=== PATIENT | male | born 1940 ===

== ENCOUNTER 2020-05-11 18:38 | Emergency (ER) | payer OTHER ==
[~2020-05-11] VITALS: Ht 180.3 cm; Wt 91.6 kg
[~2020-05-11 18:38] MED LIST: Aldactone 25 MG TABLET PO; Asa-EC 81MG TAB PO; GLUCOTROL5 MG/BOTTL PO; Imdur 30MG PO; Lipitor 20MG PO; PLAVIX 75MG PO; Toprol Xl 25MG TAB PO; VASOTEC 2.5MG TAB PO
[2020-05-11] MEDS ORDERED: METFORMIN HCL500 M4 PO (18:51)
[2020-05-11] MEDS ORDERED: LEVO-T25 MCG (18:51)
[2020-05-11] MEDS ORDERED: TOPROL XL200 MG PO (18:51)
[2020-05-11] MEDS ORDERED: WARFARIN SODIUM5 MG PO (18:51)
[2020-05-11] MEDS ORDERED: IRBESARTAN150 MG PO (18:51)
[2020-05-12] MEDS ORDERED: DOLOGEN CAPLET1 EACH PO (13:57)
== END 2020-05-12 14:11 | disposition home or self-care (01) ==
LOC: ER 18:38
DX: R53.81 Other malaise (principal); R51 Headache; M47.892 Other spondylosis, cervical region; M50.323 Other cervical disc degeneration at C6-C7 level; T45.514A Poisoning by anticoagulants, undetermined, initial encounter; Y92.89 Other specified places as the place of occurrence of the external cause

== ENCOUNTER 2021-05-14 11:43 | Outpatient (CLI) | payer OTHER ==
[~2021-05-14 11:43] MED LIST changes: +DOLOGEN CAPLET1 EACH PO; +IRBESARTAN150 MG PO; +LEVO-T25 MCG; +METFORMIN HCL500 M4 PO; +TOPROL XL200 MG PO; +WARFARIN SODIUM5 MG PO
== END 2021-05-14 11:50 | disposition home or self-care (01) ==
LOC: RAD 11:43
PROVIDERS: ATTEND Internal Medicine
DX: J44.1 Chronic obstructive pulmonary disease with (acute) exacerbation (principal)

== ENCOUNTER 2022-01-10 17:25 | Inpatient (IN) | payer OTHER ==
[~2022-01-10] VITALS: Ht 177.8 cm; Wt 100.7 kg
[2022-01-10] MEDS ORDERED: PEPCID AC20 MG PO (18:02)
[2022-01-10] MEDS ORDERED: SYNTHROID75 MCG PO (18:02)
[2022-01-10] MEDS ORDERED: SIMVASTATIN5 MG PO (18:02)
[2022-01-10] MEDS ORDERED: ELIQUIS5 MG PO (18:02)
[2022-01-10] MEDS ORDERED: TAMS0.4C PO (18:03)
[2022-01-31] MEDS ORDERED: TAMS0.4C PO (10:34)
[2022-01-31] MEDS ORDERED: ELIQUIS5 MG PO (10:35)
[2022-01-31] MEDS ORDERED: AMIODARONE HCL200 MG PO (10:35)
[2022-01-31] MEDS ORDERED: CARDIZEM CD120 MG PO (10:37)
[2022-01-31] MEDS ORDERED: PANTOPRAZOLE SO40 MG PO (10:38)
[2022-01-31] MEDS ORDERED: LEVOTHYROXINE75 MCG PO (10:39)
[2022-01-31] MEDS ORDERED: ZOCOR20 MG PO (10:42)
[2022-01-31] MEDS ORDERED: Neurin-Sl Tablet Sl SL (10:45)
[2022-01-31] MEDS ORDERED: B Complex CAPSULE PO (10:45)
== END 2022-01-31 13:33 | disposition home or self-care (01) | DRG 208 ==
LOC: ER 17:25 → ICU 01-11 11:49 → MEDJ 01-20 17:47
PROVIDERS: ADMIT Internal Medicine; ATTEND Internal Medicine
PROC: 5A1945Z Respiratory Ventilation, 24-96 Consecutive Hours (ICD-10-PCS; principal; 2022-01-11)
PROC: 0BH17EZ Insertion of Endotracheal Airway into Trachea, Via Natural or Artificial Opening (ICD-10-PCS; 2022-01-11)
PROC: B24BZZZ Ultrasonography of Heart with Aorta (ICD-10-PCS; 2022-01-11)
PROC: BW28ZZZ Computerized Tomography (CT Scan) of Head (ICD-10-PCS; 2022-01-11)
PROC: 02HV33Z Insertion of Infusion Device into Superior Vena Cava, Percutaneous Approach (ICD-10-PCS; 2022-01-17)
PROC: BW24ZZZ Computerized Tomography (CT Scan) of Chest and Abdomen (ICD-10-PCS; 2022-01-22)
DX: J96.02 Acute respiratory failure with hypercapnia (principal); I16.9 Hypertensive crisis, unspecified; J90 Pleural effusion, not elsewhere classified; J44.9 Chronic obstructive pulmonary disease, unspecified; H10.89 Other conjunctivitis; I48.0 Paroxysmal atrial fibrillation; D69.6 Thrombocytopenia, unspecified; Z79.4 Long term (current) use of insulin; I11.0 Hypertensive heart disease with heart failure; I50.9 Heart failure, unspecified; D63.1 Anemia in chronic kidney disease; I25.10 Atherosclerotic heart disease of native coronary artery without angina pectoris; Z95.1 Presence of aortocoronary bypass graft; E78.49 Other hyperlipidemia; Z20.822 Contact with and (suspected) exposure to COVID-19; I12.9 Hypertensive chronic kidney disease with stage 1 through stage 4 chronic kidney disease, or unspecified chronic kidney disease; E11.22 Type 2 diabetes mellitus with diabetic chronic kidney disease; N18.9 Chronic kidney disease, unspecified

== ENCOUNTER 2022-07-12 15:26 | Emergency (ER) | payer OTHER ==
[~2022-07-12] VITALS: Ht 177.8 cm; Wt 89.4 kg
[~2022-07-12 15:26] MED LIST changes: +AMIODARONE HCL200 MG PO; +B Complex CAPSULE PO; +CARDIZEM CD120 MG PO; +ELIQUIS5 MG PO; +LEVOTHYROXINE75 MCG PO; +Neurin-Sl Tablet Sl SL; +PANTOPRAZOLE SO40 MG PO; +PEPCID AC20 MG PO; +SIMVASTATIN5 MG PO; +SYNTHROID75 MCG PO; +TAMS0.4C PO; +ZOCOR20 MG PO
[2022-07-12] MEDS ORDERED: ZITHROMAX200 MG PO (20:09)
== END 2022-07-12 20:44 | disposition home or self-care (01) ==
LOC: ER 15:26
DX: R06.02 Shortness of breath (principal); U07.1 COVID-19; E11.9 Type 2 diabetes mellitus without complications; Z79.84 Long term (current) use of oral hypoglycemic drugs; I10 Essential (primary) hypertension; E03.9 Hypothyroidism, unspecified

== ENCOUNTER 2022-07-15 15:30 | Outpatient (CLI) | payer OTHER ==
[~2022-07-15 15:30] MED LIST changes: +ZITHROMAX200 MG PO
== END 2022-07-15 16:30 | disposition home or self-care (01) ==
LOC: ASH CLINIC 15:30
PROVIDERS: ATTEND General Practice
DX: U07.1 COVID-19 (principal)

== ENCOUNTER 2023-02-19 14:19 | Inpatient (IN) | payer OTHER ==
[~2023-02-19] VITALS: Ht 180.3 cm; Wt 86.6 kg
[2023-02-27] MEDS ORDERED: TAMS0.4C PO (14:22)
[2023-02-27] MEDS ORDERED: IPRATROPIU0.2 MG/1 M IH (14:22)
[2023-02-27] MEDS ORDERED: ELIQUIS5 MG PO (14:23)
[2023-02-27] MEDS ORDERED: DILTIAZEM HCL120 MG PO (14:23)
[2023-02-27] MEDS ORDERED: INTEGRA F CAPS1 EACH PO (14:23)
[2023-02-27] MEDS ORDERED: LIPITOR20 MG PO (14:24)
[2023-02-27] MEDS ORDERED: AMIODARONE HCL200 MG PO (14:24)
[2023-02-27] MEDS ORDERED: AVAPRO150 MG PO (14:25)
[2023-02-27] MEDS ORDERED: LEVOTHYROXINE75 MCG PO (14:25)
[2023-02-27] MEDS ORDERED: LASIX20 MG PO (14:25)
[2023-02-27] MEDS ORDERED: GLUMETZA500 MG PO (14:27)
[2023-02-27] MEDS ORDERED: GLIPIZIDE XL10 MG PO (14:27)
[2023-02-27] MEDS ORDERED: KLOR-CON M1515 MEQ PO (14:30)
[2023-02-27] MEDS ORDERED: PROTONIX20 MG PO (14:31)
[2023-02-27] MEDS ORDERED: MELATONIN5 M6 PO (14:36)
== END 2023-02-27 22:48 | disposition home or self-care (01) | DRG 291 ==
LOC: ER 14:19 → ICU-2 19:31 → ICU 02-20 21:21 → MEDJ 02-22 18:33
PROVIDERS: ADMIT Internal Medicine; ATTEND Internal Medicine
PROC: 4A12X4Z Monitoring of Cardiac Electrical Activity, External Approach (ICD-10-PCS; principal; 2023-02-19)
PROC: B246ZZZ Ultrasonography of Right and Left Heart (ICD-10-PCS; 2023-02-19)
PROC: BW21ZZZ Computerized Tomography (CT Scan) of Abdomen and Pelvis (ICD-10-PCS; 2023-02-19)
PROC: 5A09457 Assistance with Respiratory Ventilation, 24-96 Consecutive Hours, Continuous Positive Airway Pressure (ICD-10-PCS; 2023-02-19)
PROC: 3E0F7GC Introduction of Other Therapeutic Substance into Respiratory Tract, Via Natural or Artificial Opening (ICD-10-PCS; 2023-02-20)
PROC: 0W993ZZ Drainage of Right Pleural Cavity, Percutaneous Approach (ICD-10-PCS; 2023-02-26)
DX: I11.0 Hypertensive heart disease with heart failure (principal); I50.43 Acute on chronic combined systolic (congestive) and diastolic (congestive) heart failure; J96.02 Acute respiratory failure with hypercapnia; J96.01 Acute respiratory failure with hypoxia; J91.8 Pleural effusion in other conditions classified elsewhere; R18.8 Other ascites; I25.810 Atherosclerosis of coronary artery bypass graft(s) without angina pectoris; Z99.11 Dependence on respirator [ventilator] status; J44.1 Chronic obstructive pulmonary disease with (acute) exacerbation; E87.1 Hypo-osmolality and hyponatremia; E87.6 Hypokalemia; I48.0 Paroxysmal atrial fibrillation; K70.9 Alcoholic liver disease, unspecified; F10.21 Alcohol dependence, in remission; E11.65 Type 2 diabetes mellitus with hyperglycemia; E03.9 Hypothyroidism, unspecified; Z79.84 Long term (current) use of oral hypoglycemic drugs; Z79.4 Long term (current) use of insulin; Z87.891 Personal history of nicotine dependence

== ENCOUNTER 2023-03-12 04:59 | Inpatient (IN) | payer OTHER ==
[~2023-03-12] VITALS: Ht 180.3 cm; Wt 89.4 kg
[~2023-03-12 04:59] MED LIST changes: +AVAPRO150 MG PO; +DILTIAZEM HCL120 MG PO; +GLIPIZIDE XL10 MG PO; +GLUMETZA500 MG PO; +INTEGRA F CAPS1 EACH PO; +IPRATROPIU0.2 MG/1 M IH; +KLOR-CON M1515 MEQ PO; +LASIX20 MG PO; +LIPITOR20 MG PO; +MELATONIN5 M6 PO; +PROTONIX20 MG PO
--- NOTE | 2023-03-12 05:11 | NUR ---
SE RECIBE PTE ALERTA Y ORIENTADO X3 JUNTO ESPOSA LA MISMA REFIERE QUE PTE FREEMAN ESTADO RECIENTEMENTE HOSPITALIZADO POR FALTA DE AIRE, LE COMENTARON QUE PTE COMENZABA A PADECER DE COPD, CON PULMONES LLENOS DE AGUA. HOY SIGUE CON SATURACION EN 90%. LA ESPOSA REFEIRE QUE EL LLEVA LILIA MAQUINA DE OXIGENO TODO EL TIEMPO KEENA AUN CON LA MAQUINA DE OXIGENO SE SIENTE SIN AIRE.
--- NOTE | 2023-03-12 05:35 | NUR ---
SE REALIZA EKG A PTE EN PO CON BARANDAS ELEVADAS JUNTO A GALLEGOS HIJA Y SE LE MUESTRA A DOCTOR NASH EL CUAL EVALUA AL PTE.
--- NOTE | 2023-03-12 06:21 | NUR ---
PACIENTE ALERTA Y ORIENTADO X3. SE ORIENTA A PACIENTE SOBRE TX Y PROCEDIMIENTO A REALIZAR Y REFIRIO ENTENDER. SE ADMINISTRA MEDICAMENTO ORDENADO POR MD. SE REALIZA MUESTRAS DE LABORATORIO BAJO MEDIDAS ASEPTICAS. SE INSERTA SONDA URINARIA BAJO MEDIDAS ASEPTICAS Y ESTERILES. SE MANTIENE BAJO OBSERVACION POR CAMBIOS SIGNIFICATIVOS EN CAMA #1 EN UNIDAD DE CRITICO CON BARANDAS ELEVADAS Y CONECTADO A MONITOR CARDIACO Y OXIMETRIA DE PULSO. LE REALIZARON PLACA DE PECHO ORDENADO POR . PENDIENTE QUE TERAPIA RESPIRATORIA ADMINISTRE LA MISMA AL PACIENTE Y REALIZA ABG A PACIENTE.
--- NOTE | 2023-03-12 06:41 | NUR ---
PTE ALERTA Y ORIENTADO X3 EN CAMA EN POSICION SEMIFOWLER,CONECTADO A MONITOR CARDIACO Y OXIMETRIA. PTE CON CANULA NASAL A 1L, JOCELYNN ORDEN MEDICA. PTE CANALIZADO EN MANO DERECHA AREA JANE DE EDEMA Y DE ENROJECIMIENTO. PTE CON RAMIREZ DRENANDO 300ML DE ORINA COLOR AMARILLO MUKESH. PTE SE MANTIENE BAJO OBSERVACION POR CAMBIOS.
--- NOTE | 2023-03-12 07:21 | NUR ---
MASCULINO ALERTA Y ORIENTADO X3 CONECTADO A MONITOR CARDIACO CON UN HR DE 102 LAT/MIN Y OXIMETRIA DE PULSO CON SPO2 93% ASISTIDO CON CANULA NASAL A 1L/MIN. DOS CANALIZACIONES EN MANO DERECHA #18 X2 LIBRES DE EDEMA ERITEMA Y SIGNOS DE INFECCION. NO SE OBSERVAN IV FLUIDS. PTE CON RAMIREZ EN POSICION A GRAVEDAD. SE MANTIENE PTE EN OBSERVACION POR CAMBIOS SIGNIFICATIVOS.
--- NOTE | 2023-03-12 07:40 | NUR ---
SE HABLA CON PERSONAL DE TERAPIA ROHENA PARA NOTIFICAR ABG.
[2023-03-13] MEDS ORDERED: OMEGA-3 FISH O1 EAC7 (08:12)
[2023-03-13] MEDS ORDERED: ABANEU-SL TABL1 EACH (08:13)
[2023-03-13] MEDS ORDERED: VITAMIN C WITH500 MG (08:13)
[2023-03-13] MEDS ORDERED: B-COMPLEX/C T400 MCG (08:13)
[2023-03-13] MEDS ORDERED: FUSION PLUS CA1 EACH (08:13)
[2023-03-16] MEDS ORDERED: ELIQUIS5 MG PO (11:49)
[2023-03-16] MEDS ORDERED: TAMS0.4C PO (11:49)
[2023-03-16] MEDS ORDERED: LIPITOR20 MG PO (11:50)
[2023-03-16] MEDS ORDERED: AVAPRO150 MG PO (11:50)
[2023-03-16] MEDS ORDERED: DILTIAZEM ER120 M2 PO (11:50)
[2023-03-16] MEDS ORDERED: AMIODARONE HCL200 MG PO (11:50)
[2023-03-16] MEDS ORDERED: FUROSEMIDE20 MG PO (11:51)
[2023-03-16] MEDS ORDERED: LEVOTHYROXINE75 MCG PO (11:52)
[2023-03-16] MEDS ORDERED: PANTOPRAZOLE SO20 MG PO (11:52)
[2023-03-16] MEDS ORDERED: GLUMETZA500 MG PO (11:53)
== END 2023-03-16 20:37 | disposition home or self-care (01) | DRG 291 ==
LOC: ER 04:59 → MEDI 13:38 → SEC-K 13:38 → MEDJ 13:40 → MEDI 14:36
PROVIDERS: ADMIT Internal Medicine; ATTEND Internal Medicine
PROC: 4A12X4Z Monitoring of Cardiac Electrical Activity, External Approach (ICD-10-PCS; 2023-03-12)
PROC: 5A09457 Assistance with Respiratory Ventilation, 24-96 Consecutive Hours, Continuous Positive Airway Pressure (ICD-10-PCS; principal; 2023-03-14)
DX: I11.0 Hypertensive heart disease with heart failure (principal); A41.9 Sepsis, unspecified organism; I50.33 Acute on chronic diastolic (congestive) heart failure; J96.01 Acute respiratory failure with hypoxia; Z99.11 Dependence on respirator [ventilator] status; N39.0 Urinary tract infection, site not specified; Z79.4 Long term (current) use of insulin; Z99.81 Dependence on supplemental oxygen; B96.20 Unspecified Escherichia coli [E. coli] as the cause of diseases classified elsewhere; B96.4 Proteus (mirabilis) (morganii) as the cause of diseases classified elsewhere; J44.9 Chronic obstructive pulmonary disease, unspecified; E78.5 Hyperlipidemia, unspecified; E03.9 Hypothyroidism, unspecified; I48.0 Paroxysmal atrial fibrillation; G47.33 Obstructive sleep apnea (adult) (pediatric); Z95.1 Presence of aortocoronary bypass graft; E11.65 Type 2 diabetes mellitus with hyperglycemia; I25.10 Atherosclerotic heart disease of native coronary artery without angina pectoris; Z20.822 Contact with and (suspected) exposure to COVID-19; N40.0 Benign prostatic hyperplasia without lower urinary tract symptoms

== ENCOUNTER 2023-04-14 21:07 | Inpatient (IN) | payer OTHER ==
[~2023-04-14] VITALS: Ht 175.3 cm; Wt 86.2 kg
[~2023-04-14 21:07] MED LIST changes: +ABANEU-SL TABL1 EACH; +B-COMPLEX/C T400 MCG; +DILTIAZEM ER120 M2 PO; +FUROSEMIDE20 MG PO; +FUSION PLUS CA1 EACH; +OMEGA-3 FISH O1 EAC7; +PANTOPRAZOLE SO20 MG PO; +VITAMIN C WITH500 MG
[2023-04-14] MEDS ORDERED: TAMS0.4C PO (22:17)
--- NOTE | 2023-04-14 22:18 | NUR ---
SE RECIBE PTE ALERTA ORIENTADO X3.PTE REFIERE TENER DICULTAD RESPIRATORIA,DESDE DENISSE EN LA TARDE.SE ALESHIA EKG SE PRESENTA A Y SE COLOCA EN K#8.SE KITTY S/V Y SE UBICA.PTE DE DR.MUNOZ VALLADARES.SE COLOCA CANULA NASAL 2LPM.PTE CON HISTORIAL CARDIACO.
--- NOTE | 2023-04-14 23:48 | NUR ---
PTE EVALUADO POR DR. MONTALVO. MS C. QUIÑONEZ ORIENTA PTE SOBRE TX A SEGUIR, EL CUAL REFIERE ENTENDER. SE COLECTAN MUESTRAS Y SE CANALIZA PTE UTILIZANDO MEDIDAS ASEPTICAS. SE ADM. MEDICAMENTOS JOECLYNN ORDEN MEDICA BAJO MEDIDAS ASEPTICAS. SE NOTIFICAN TERAPIAS Y ABG A PERSONAL DE TERAPIA RESPIRATORIA. SE HACE ENTREGA DE ENVASE PARA MUESTRA DE UA PEND.
--- NOTE | 2023-04-15 08:14 | NUR ---
SE RECIBE PACIENTE DE TURNO ANTERIOR EN CAMA ACOMPANADO DE FAMILIAR.PTE CON H/L PATENTE Y JANE DE EDEMA. PTE PENDIENTE CONSULTA CON DR.ERNESTO VALLADARES.
[2023-04-15] MEDS ORDERED: LEVOTHYROXINE75 MCG (14:58)
[2023-04-15] MEDS ORDERED: ABANEU-SL TABL1 EACH (14:58)
[2023-04-15] MEDS ORDERED: FEROCON CAPSUL1 EACH (14:59)
[2023-04-15] MEDS ORDERED: PAIN RELIEVER500 M5 (14:59)
[2023-04-15] MEDS ORDERED: LOSARTAN POTASS50 MG (14:59)
[2023-04-15] MEDS ORDERED: B-COMPLEX/C T400 MCG (14:59)
[2023-04-15] MEDS ORDERED: FUSION PLUS CA1 EACH (14:59)
[2023-04-15] MEDS ORDERED: VITAMIN C WITH500 MG (14:59)
[2023-04-15] MEDS ORDERED: DOCUSATE SODIU100 MG (14:59)
[2023-04-15] MEDS ORDERED: JARDIANCE10 MG (15:00)
[2023-04-15] MEDS ORDERED: GLIPIZIDE5 MG (15:00)
[2023-05-01] MEDS ORDERED: IPRATROPIU0.2 MG/1 M IH (12:42)
[2023-05-01] MEDS ORDERED: JARDIANCE10 MG PO (12:42)
[2023-05-01] MEDS ORDERED: LEVOFLOXACIN750 MG PO (12:42)
[2023-05-01] MEDS ORDERED: LASIX20 MG PO (12:42)
[2023-05-01] MEDS ORDERED: INTEGRA PLUS C1 EACH PO (12:42)
[2023-05-01] MEDS ORDERED: XOPENEX CO1.25 MG/0. IH (12:42)
[2023-05-01] MEDS ORDERED: BUDEO.25 IH (12:42)
[2023-05-01] MEDS ORDERED: TAMS0.4C PO (12:42)
[2023-05-01] MEDS ORDERED: PROTEINEX-18 LI30 ML PO (12:42)
== END 2023-05-01 18:06 | disposition home or self-care (01) | DRG 189 ==
LOC: ER 21:07 → SEC-K 04-15 11:52 → MEDJ 04-15 11:52 → SEC-K 04-15 13:56 → MEDJ 04-15 15:43
PROVIDERS: ADMIT Internal Medicine; ATTEND Internal Medicine
PROC: BW21ZZZ Computerized Tomography (CT Scan) of Abdomen and Pelvis (ICD-10-PCS; principal; 2023-04-15)
PROC: BB24ZZZ Computerized Tomography (CT Scan) of Bilateral Lungs (ICD-10-PCS; 2023-04-15)
PROC: B246ZZZ Ultrasonography of Right and Left Heart (ICD-10-PCS; 2023-04-15)
PROC: 5A09457 Assistance with Respiratory Ventilation, 24-96 Consecutive Hours, Continuous Positive Airway Pressure (ICD-10-PCS; 2023-04-15)
PROC: 3E0F7GC Introduction of Other Therapeutic Substance into Respiratory Tract, Via Natural or Artificial Opening (ICD-10-PCS; 2023-04-15)
PROC: 4A12X4Z Monitoring of Cardiac Electrical Activity, External Approach (ICD-10-PCS; 2023-04-15)
PROC: 0W993ZZ Drainage of Right Pleural Cavity, Percutaneous Approach (ICD-10-PCS; 2023-04-17)
PROC: 0W9B3ZZ Drainage of Left Pleural Cavity, Percutaneous Approach (ICD-10-PCS; 2023-04-20)
PROC: 02HV33Z Insertion of Infusion Device into Superior Vena Cava, Percutaneous Approach (ICD-10-PCS; 2023-04-21)
PROC: 30233R1 Transfusion of Nonautologous Platelets into Peripheral Vein, Percutaneous Approach (ICD-10-PCS; 2023-04-28)
PROC: 30233N1 Transfusion of Nonautologous Red Blood Cells into Peripheral Vein, Percutaneous Approach (ICD-10-PCS; 2023-04-29)
DX: J96.02 Acute respiratory failure with hypercapnia (principal); I50.33 Acute on chronic diastolic (congestive) heart failure; J44.1 Chronic obstructive pulmonary disease with (acute) exacerbation; E87.0 Hyperosmolality and hypernatremia; J96.01 Acute respiratory failure with hypoxia; Z99.81 Dependence on supplemental oxygen; E09.65 Drug or chemical induced diabetes mellitus with hyperglycemia; T38.0X5A Adverse effect of glucocorticoids and synthetic analogues, initial encounter; Z79.4 Long term (current) use of insulin; I11.0 Hypertensive heart disease with heart failure; G47.33 Obstructive sleep apnea (adult) (pediatric); D72.828 Other elevated white blood cell count; E87.6 Hypokalemia; E03.8 Other specified hypothyroidism; D64.9 Anemia, unspecified; D69.6 Thrombocytopenia, unspecified; E86.0 Dehydration